=== PATIENT | female | born 1945 | race Caucasian/White ===

== ENCOUNTER 2017-05-31 10:24 | Emergency (ER) | payer MEDICARE, OTHER ==
[2017-05-31 10:38] VITALS: BP 158/70
[2017-05-31] MEDS ORDERED: Tetracaine 0.5% OPTH.SOL 4 ML* 1 DROP BTL LEFT EYE ONE (10:41)
[2017-05-31] MEDS ORDERED: Fluorescein Sodium TOPICAL* 1 MG TEST OPHTHALMIC ONE (10:41)
[2017-05-31] MEDS ORDERED: BSS OPTH.SOL* BTL ONE (10:43)
[2017-05-31] MEDS ORDERED: Fluorescein Sodium TOPICAL* 1 MG TEST ONE (10:43)
[2017-05-31] MEDS ORDERED: Tetracaine 0.5% OPTH.SOL 4 ML* 1 DROP BTL ONE (10:43)
--- NOTE | 2017-05-31 10:46 | UC ---
Eye Complaint HPI - HPI Summary HPI Summary: 72 female presents to with complaints of left eye redness, irritation and pain. She states she feels like there is something in her eye that has been ongoing for the past 2 days. Patient has not used any medications. Denies visual changes and loss of vision. Denies any drainage that she has noticed. Denies getting anything into her eye or chemicals getting into eye. No fever/ chills. No other symptoms or complaints. Wears reading glasses, does not wear contacts. Has been touching her eye pretty frequently due to irritation. Denies photosensitivity. - History of Current Complaint Chief Complaint: UCEye Stated Complaint: LEFT EYE COMPLAINT Time Seen by Provider: 05/31/17 10:33 Hx Obtained From: Patient Hx Last Menstrual Period: n/a Onset/Duration: Sudden Onset, Lasting Days - 2, Still Present, Worse Since Timing: Constant Severity Initially: Mild Severity Currently: Moderate Pain Intensity: 0 Pain Scale Used: 0-10 Numeric Location of Injury: Conjunctiva, Sclera Character: Foreign Body Sensation Aggravating Factor(s): Nothing Alleviating Factor(s): Nothing - rubbing it - Allergies/Home Medications Allergies/Adverse Reactions: Allergies Allergy/AdvReac Type Severity Reaction Status Date / Time Sulfa Antibiotics Allergy Rash Verified 05/31/17 10:33 Home Medications: Home Medications Estradiol [Estrogel] 0.06 % TD DAILY 05/31/17 [History Confirmed 05/31/17] PMH/Surg Hx/FS Hx/Imm Hx - Additional Past Medical History Additional PMH: Denies DM and Asthma - Surgical History Surgical History: Yes Surgery Procedure, Year, and Place: hysterectomy - Family History Known Family History: Positive: None - Social History Alcohol Use: None Substance Use Type: None Smoking Status (MU): Former Smoker When Did the Patient Quit Smoking/Using Tobacco: 45 years ago Review of Systems Constitutional: Negative Eyes: Eye Redness - irritation, pain, FB sensation ENT: Negative Respiratory: Negative Cardiovascular: Negative Neurological: Negative All Other Systems Reviewed And Are Negative: Yes Physical Exam Triage Information Reviewed: Yes Appearance: Well-Appearing, No Pain Distress, Well-Nourished Vital Signs: Initial Vital Signs Temp 98.5 F 05/31/17 10:35 Pulse 82 05/31/17 10:35 Resp 20 05/31/17 10:35 BP 158/70 05/31/17 10:35 elevated BP noted, encourage recheck and evaluation by PCP withing 1-2 weeks. currently asymptomatic Vital Signs Reviewed: Yes Eyes: Positive: Conjunctiva Inflamed - and edematous, Discharge - tearing, Other : - left eye: erythema over cornea. flouroscein stain completed and no corneal abrasions noted, no FB appreciated, even under upper lid. no white discharge or concern for keratitis at this time. MARY EOMI and normal fundoscopic exam although limited due to constriction of pupils. normal visual acuity. normal right eye ENT: Positive: Normal ENT inspection, Hearing grossly normal, Pharynx normal Neck: Positive: Supple Respiratory: Positive: Chest non-tender, Lungs clear, Normal breath sounds, No respiratory distress, No accessory muscle use Cardiovascular: Positive: RRR, No Murmur, Pulses Normal, Brisk Capillary Refill Musculoskeletal: Positive: Strength Intact Neurological: Positive: Alert Skin Exam: Normal Procedures - Eye Procedure Alcaine Drops Administered: Yes - fluroscein stain completed and negative exam Eye Irrigated w/ Saline (ccs): 30 Eye Complaint Course/Dx - Course Course Of Treatment: appears to be suffering from a iritis, conjunctivitis. fluroscein stain completed and negative. no FB or abrasion appreciated at this time. Erythema and edema of conjunctiva with scleral erythema and iris erythena/ irritation. appeared inflammed. will treat with trial of antibiotic drops. also given patanol. encourage iburpofen orally. follow up appointment with optho on of this week. aware of worsening signs and symptoms to return for. no concern for other etiology at this time due to PE findings and HPI. - Differential Dx/Diagnosis Differential Diagnosis/HQI/PQRI: Conjunctivitis, Corneal Abrasion, Keratitis Provider Diagnoses: iritis, conjunctivits, left eye Discharge - Discharge Plan Condition: Stable Disposition: HOME Prescriptions: Ciprofloxacin 0.3% OPTH.LESLIE* [Cipro 0.3% Opth*] 1 drop LEFT EYE Q2H #1 btl Patient Education Materials: Iritis (ED), Conjunctivitis (ED) Referrals: Alex Eddy MD [Primary Care Provider] - Additional Instructions: Use prescribed eye drops as directed. On days 5-7 you may decrease use to three times a day. Apply warm compresses. Avoid touching eye. Wash hands frequently. Rest eyes. Ibuprofen for inflammation and discomfort. Follow up with eye doctor on . Any new or worsening signs/symptoms please seek medical attention promptly, and return as directed.
== END 2017-05-31 11:14 | disposition home or self-care (01) ==
LOC: UCCORT 10:24
DX: H20.9 Unspecified iridocyclitis (principal); H10.32 Unspecified acute conjunctivitis, left eye; Z90.710 Acquired absence of both cervix and uterus; Z88.2 Allergy status to sulfonamides; Z87.891 Personal history of nicotine dependence
CPT/HCPCS: 99212; A9270-GY; G0463